=== PATIENT | male | born 1995 | race Caucasian/White ===

== ENCOUNTER 2018-03-31 23:26 | Emergency (ER) | payer OTHER ==
[~2018-03-31] VITALS: Ht 193 cm; Wt 88.5 kg
[2018-03-31 23:47] VITALS: BP 127/75
[2018-04-01] MEDS ORDERED: Lidocaine 1% MPF 10mg/ml 5ml INJ ONE (00:15)
[2018-04-01] MEDS ORDERED: Bacitracin Oint UD TOPIC ONE (00:15)
--- NOTE | 2018-04-01 00:37 | Emergency Room Report ---
History of Present Illness General Chief Complaint: Laceration Source: Patient Present Illness HPI Patient tried to catch a glass from breaking, it broke and cut his L ring finger. Bleeding controlled. Pain rated 2/10, sharp, not radiating. No numbness. Movement of finger normal. Tetanus UTD. R handed No medical problems. 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 [place] Reviewed Nursing Documentation: PMH: Agreed; PSxH: Agreed Nursing Documentation-PMH Past Medical History: No Stated History Review of Systems Constitutional: Denies: fever Musculoskeletal: Reports: see HPI Skin: Reports: see HPI Neurological: Reports: see HPI Hematologic/Lymphatic: Reports: see HPI Physical Exam Vital Signs Date Time Temp Pulse Resp B/P (MAP) Pulse Ox O2 Delivery O2 Flow Rate FiO2 03/31/18 23:36 97.9 55 17 127/75 94 Room Air Sp02 EP Interpretation: reviewed, normal General Appearance: well appearing, no apparent distress Head: normocephalic, atraumatic Eyes: bilateral eye normal inspection, bilateral eye PERRL ENT: hearing grossly normal, normal voice, moist mucus membranes Neck: full range of motion, supple Respiratory: no respiratory distress, speaking full sentences Cardiovascular #1: regular rate, rhythm Cardiovascular #2: 2+ radial (L) - good cap fill Gastrointestinal: normal inspection Musculoskeletal: gait/station normal, normal range of motion - profundus and superficialis intact Neurologic: alert, motor strength/tone normal, sensory intact Psychiatric: mood/affect normal Skin: laceration - L ring finger 2 cm ulnar side Procedures Laceration/Wound Repair Laceration/Wound Repair : Consent: Verbal Wound Location: upper extremity - L ring finger Wound's Depth, Shape: irregular, flap Wound Length (cm): 2 Wound Explored: clean - depth of wound explored, no glass Irrigated w/ Saline (ccs): 20 Betadine Prep?: Yes Anesthesia: 1% Lidocaine Volume Anesthetic (ccs): 2 Wound Debrided: minimal Wound Repaired With: sutures Suture Size/Type: 5:0 Layer Closure?: No Sterile Dressing Applied?: Yes Splint Applied?: No Patient Tolerated: Well Complications: None Progress some bleeding. Tourniquet applied. Bleeding controlled with sutures. Medical Decision Making Diagnostic Impression: Primary Impression: Laceration of left ring finger Qualified Codes: S61.215A - Laceration without foreign body of left ring finger without damage to nail, initial encounter ER Course Patient with laceration. Needs sutures. Neurovasc and tendons intact. Tolerated sutures well. Patient stable for outpatient observation and treatment. Last Vital Signs Date Time Temp Pulse Resp B/P (MAP) Pulse Ox O2 Delivery O2 Flow Rate FiO2 04/01/18 00:52 97.9 60 17 115/75 96 Room Air Status: improved Disposition: HOME, SELF-CARE Condition: Improved Scripts Ibuprofen* (MOTRIN*) 600 Mg Tablet 600 MG ORAL Q6H PRN for For Pain, #16 TAB Prov: Les Sin MD 04/01/18 Bacitracin (Bacitracin) 28.4 Gm Oint...g. 1 APPLIC TOPIC BID, #10 GM Prov: Les Sin MD 04/01/18 Les Sin MD Apr 01, 2018 00:37
[2018-04-01] MEDS ORDERED: BACITRACIN15 GM TOPIC (00:39)
[2018-04-01] MEDS ORDERED: IBUPROFEN600 MG ORAL (00:39)
[2018-04-01 00:52] VITALS: BP 115/75
== END 2018-04-01 00:50 | disposition home or self-care (01) ==
LOC: EMR 23:59
DX: S61.215A Laceration without foreign body of left ring finger without damage to nail, initial encounter (principal); W25.XXXA Contact with sharp glass, initial encounter; Y92.9 Unspecified place or not applicable
CPT/HCPCS: 99283